=== PATIENT | male | born 1955 | race Caucasian/White ===

== ENCOUNTER 2019-10-02 08:27 | Day surgery (SDC) | payer MEDICAID ==
[2019-10-02] MEDS ORDERED: Sodium Chloride 0.9% 1,000 ML IV SCH (09:00)
[2019-10-02] MEDS ORDERED: Midazolam 1 MG/ML 2 ML SDV ONE (09:15)
[2019-10-02] MEDS ORDERED: fentaNYL 100 MCG/2 ML SDV ONE (09:15)
[2019-10-02] MEDS ORDERED: Propofol 200 MG/20 ML SDV ONE (09:15)
[2019-10-02 12:29] VITALS: BP 155/92; PULSE 57
--- NOTE | 2019-10-02 13:12 | OR ---
DATE OF PROCEDURE: 10/02/2019 SURGEON: Stef Wood MD PROCEDURE: Colonoscopy. FINDINGS: 1. Transverse colon polyp, approximately 5 mm, completely removed using hot snare device. 2. Transverse colon #2, approximately 5 mm, completely removed using hot snare device. 3. Sigmoid colon polyp, approximately 5 mm, completely removed using cold biopsy forceps. COMPLICATIONS: None. FORMING PROCESS LINE WORKER: None. ANESTHESIA: MAC. PREOPERATIVE DIAGNOSIS: Screening colonoscopy. POSTOPERATIVE DIAGNOSIS: Screening colonoscopy. RISKS: Risks, benefits, alternatives, and limitations including, but not limited to infection, bleeding, perforation explained and the patient wished to proceed. PROCEDURE IN DETAIL: The patient was placed in a left lateral decubitus position. Digital rectal exam was performed without abnormality. Scope was introduced and advanced atraumatically to the ileocecal valve. The scope was brought back through the ascending, transverse, descending colon, and retroflexed. No evidence of old or new blood. The aforementioned polyps were identified and completely removed. No colitis. The patient did have diverticulosis which was described as mild to moderate, limited to sigmoid colon only. No abnormalities on retroflexion. The patient tolerated the procedure well. Stef Wood MD /[id number]
== END 2019-10-02 11:40 | disposition home or self-care (01) ==
LOC: JP.SDS 08:27
PROVIDERS: ATTEND Surgery
DX: Z12.11 Encounter for screening for malignant neoplasm of colon (principal); D12.5 Benign neoplasm of sigmoid colon; D12.3 Benign neoplasm of transverse colon; K57.30 Diverticulosis of large intestine without perforation or abscess without bleeding; J44.9 Chronic obstructive pulmonary disease, unspecified; Z88.0 Allergy status to penicillin
CPT/HCPCS: 45380; 45385; J2250; J2704; J3010; J7030

== ENCOUNTER 2021-09-01 07:56 | Day surgery (SDC) | payer MEDICARE, OTHER ==
[~2021-09-01 07:56] MED LIST: Midazolam 1 MG/ML 2 ML SDV ONE; Propofol 200 MG/20 ML SDV ONE; fentaNYL 100 MCG/2 ML SDV ONE
[2021-09-01] MEDS ORDERED: Sodium Chloride 0.9% 1,000 ML IV SCH (08:30)
[2021-09-01 11:00] VITALS: BP 131/77; PULSE 54
--- NOTE | 2021-09-01 13:02 | OR ---
DATE OF PROCEDURE: 09/01/2021 SURGEON: Stef Wood MD PROCEDURE PERFORMED: Colonoscopy. FINDINGS: Diverticulosis, limited to the sigmoid colon, mild to moderate, without evidence of diverticulitis or bleeding. COMPLICATIONS: None. HOOP ROLLS OPERATOR: None. ANESTHESIA: MAC. PREOPERATIVE DIAGNOSIS: Screening colonoscopy. POSTOPERATIVE DIAGNOSIS: Screening colonoscopy. RISKS: Risks, benefits, alternatives, and indications including, but not limited to infection, bleeding, perforation, false positives, and false negatives were explained to the patient, and they wished to proceed. PROCEDURE IN DETAIL: The patient was placed in the left lateral decubitus position. Digital rectal exam was performed without abnormality. Scope was introduced and advanced atraumatically to the ileocecal valve. A photo was taken. The scope was brought back to the ascending, transverse, descending colon, and retroflexed. No evidence of old or new blood. No masses. No polyps. The diverticulosis described as mild to moderate without evidence of diverticulitis or bleeding, mostly concentrated in the sigmoid colon, but distributed throughout the entire colon. Greater than 8 minutes was spent removing the scope. The prep was marginal. Approximately 90% of the luminal surface could be seen, but some solid and liquid stool remaining. Suction and irrigation techniques were used to improve this. The patient tolerated the procedure well. Stef Wood MD /[id number]
== END 2021-09-01 11:02 | disposition home or self-care (01) ==
LOC: JP.SDS 07:56
PROVIDERS: ATTEND Surgery
DX: Z12.11 Encounter for screening for malignant neoplasm of colon (principal); K57.30 Diverticulosis of large intestine without perforation or abscess without bleeding; Z88.2 Allergy status to sulfonamides; Z86.010 Personal history of colon polyps
CPT/HCPCS: G0105; J2250; J2704; J3010; J7030

== ENCOUNTER 2023-08-05 06:29 | Day surgery (SDC) | payer MEDICARE, OTHER ==
[2023-08-05] MEDS ORDERED: Lactated Ringers 1,000 ML IV SCH (06:30)
[2023-08-05] MEDS ORDERED: Bupivacaine 0.5% 30 ML SDV ONE (06:47)
[2023-08-05 06:52] LABS: HEMATOCRIT 41.5 % (38.4-49.7); HEMOGLOBIN 14.1 g/dL (12.9-16.9); MEAN CORPUSCULAR HEMOGLOBIN 31.4 pg (31.6-35.5); MEAN CORPUSCULAR VOLUME 92.4 fL (81.4-99.0); RED BLOOD CELL COUNT 4.49 M/uL (4.14-5.76); WHITE BLOOD CELL COUNT,WBC 7.4 K/uL (3.2-11.0)
[2023-08-05] MEDS ORDERED: ceFAZolin 1 GM in Premix Bag 1 BAG IV ONE (07:00)
[2023-08-05 07:13] LABS: ALANINE AMINOTRANSFERASE,ALT 12 U/L (12-78); ALBUMIN 3.2 g/dL (3.4-5.0); ALKALINE PHOSPHATASE 106 U/L (46-116); ANION GAP 4.8 mmol/L (5.0-14.0); ASPARTATE AMNIOTRANSFERASE,AST 11 U/L (15-37); BILIRUBIN TOTAL 0.5 mg/dL (0.2-1.0); BLOOD UREA NITROGEN,BUN 17 mg/dL (7-18); CARBON DIOXIDE,CO2 31 mmol/L (21-32); CHLORIDE,CL 105 mmol/L (100-108); EST CRCL DRUG DOSING (CG) 78.68 mL/min; ESTIMATED GFR 82 mL/min (>60); GLUCOSE RANDOM 116 mg/dL (74-106); POTASSIUM,K 3.8 mmol/L (3.6-5.2); PROTEIN TOTAL,TP 6.3 g/dL (6.4-8.2); SODIUM,NA 141 mmol/L (140-148)
[2023-08-05] MEDS ORDERED: Midazolam 1 MG/ML 2 ML SDV ONE (07:19)
[2023-08-05] MEDS ORDERED: Propofol 200 MG/20 ML SDV ONE ×3 (07:19→08:41)
[2023-08-05] MEDS ORDERED: fentaNYL 100 MCG/2 ML SDV ONE ×2 (07:19→08:58)
[2023-08-05] MEDS ORDERED: Lidocaine 0.5% 50 ML SDV ONE (07:19)
[2023-08-05] MEDS ORDERED: Nozin Nasal Sanitizer NASBOTH ONE (07:30)
[2023-08-05] MEDS ORDERED: Labetalol 20 MG/4 ML Syringe ONE (08:57)
[2023-08-05 10:32] VITALS: BP 173/80; PULSE 50
== END 2023-08-05 10:43 | disposition home or self-care (01) ==
LOC: JP.SDS 06:29
PROVIDERS: ATTEND Specialist
DX: M18.12 Unilateral primary osteoarthritis of first carpometacarpal joint, left hand (principal); J45.909 Unspecified asthma, uncomplicated; F90.9 Attention-deficit hyperactivity disorder, unspecified type; Z88.2 Allergy status to sulfonamides
CPT/HCPCS: 25447; 36415; 80053; 85027; A9270; C1768; J0690; J2250; J2704; J3010; J3490; J7120